=== PATIENT | male | born 1965 | race Caucasian/White ===

== ENCOUNTER 2016-12-15 06:49 | Day surgery (SDC) | payer BC ==
--- NOTE | ~2016-12-15 | EGD ---
EGD REPORT [facility] [address] [id number] NAME: HILDA BARRIOS : [birth year] STATUS : REG [facility]#: [id number] AGE: 51 ADM/REG DATE : 12/15/16 MR#: [id number] REPORT SERV DATE: 12/15/16 DICTATED BY: DATE: REPORT STATUS : Draft TRANSCRIBED BY: 3 Four 5 [facility] DATE: 12/15/16 End[facility] Center Patient Name: Hilda Barrios Date of : 1965 Attending MD: CORI LAU MD Procedure Date No Time: 12/15/2016 Procedure: Colonoscopy Indications: Screening in patient at increased risk: Colorectal cancer in brother before age 60, Screening in patient at increased risk: Colorectal cancer in sister before age 60, High risk colon cancer surveillance: Personal history of colonic polyps Referring MD: Brad Daily Medicines: Monitored Anesthesia Care Complications: No immediate complications. Procedure: Pre-Anesthesia Assessment: - ASA Grade Assessment: II - A patient with mild systemic disease. After I obtained informed consent, the scope was passed under direct vision. Throughout the procedure, the patient's blood pressure, pulse, and oxygen saturations were monitored continuously. The CF [id number] was introduced through the anus and advanced to the cecum, identified by appendiceal orifice and ileocecal valve. The colonoscopy was performed without difficulty. The patient tolerated the procedure well. The quality of the bowel preparation was adequate. Findings: The digital rectal exam was normal. Pertinent negatives include no palpable rectal lesions. Three sessile polyps were found in the ascending colon. The polyps were 3 to 4 mm in size. These polyps were removed with a cold biopsy forceps. Resection and retrieval were complete. Two sessile polyps were found in the rectum. The polyps were 2 to 3 mm in size. These polyps were removed with a cold biopsy forceps. Resection and retrieval were complete. Multiple diverticula were found in the sigmoid colon. Hemorrhoids were found during retroflexion and were mild. Impression: - Three 3 to 4 mm polyps in the ascending colon. Resected and retrieved. - Two 2 to 3 mm polyps in the rectum. Resected and retrieved. - Diverticulosis in the sigmoid colon. EGD REPORT [address] [address] NAME: HILDA BARRIOS : [birth year] STATUS : REG [facility] [place] PAT#: [id number] AGE: 51 ADM/REG DATE : 12/15/16 MR#: [id number] REPORT SERV DATE: 12/15/16 DICTATED BY: DATE: REPORT STATUS : Draft TRANSCRIBED BY: KXEN DATE: 12/15/16 - Hemorrhoids. Recommendation: - Patient has a contact number available for emergencies. The signs and symptoms of potential delayed complications were discussed with the patient. Return to normal activities tomorrow. Written discharge instructions were provided to the patient. - Regular diet. - Continue present medications. - Repeat colonoscopy in 3 years for surveillance. - Return to GI clinic PRN. Procedure Code(s): --- Professional --- 53742, Colonoscopy, flexible, proximal to splenic flexure; with biopsy, single or multiple Diagnosis Code(s): --- Professional --- K62.1, Rectal polyp D12.2, Benign neoplasm of ascending colon K64.9, Unspecified hemorrhoids K57.30, Diverticulosis of large intestine without perforation or abscess without bleeding Z12.11, Encounter for screening for malignant neoplasm of colon Z80.0, Family history of malignant neoplasm of digestive organs Z86.010, Personal history of colonic polyps CPT copyright 2013 [employer]. All rights reserved. The codes documented in this report are preliminary and upon head wrestling coach review may be revised to meet current compliance requirements. CORI LAU MD 12/15/2016 9:55 AM This report has been signed electronically. Number of Addenda: 0 Note Initiated On: 12/15/2016 9:28 AM Scope Withdrawal Time 0 hours 9 minutes 33 seconds [id number] [id number]
[~2016-12-15 06:49] MED LIST: ALTA2.5 PO; ASAB PO; DENIES HOME MEDS; EFFIENT10 PO; LOFIB160 PO; MAXALT10 MG PO; NITROSTAT0.4 MG SL; PLAVIX PO; TOPXL100 PO; VERELAN180 MG PO; ZOCOR40 PO
== END 2016-12-15 23:59 | disposition home or self-care (01) ==
LOC: DMU 06:49
PROVIDERS: Internal Medicine Gastroenterology
PROC: 0DBP8ZX Excision of Rectum, Via Natural or Artificial Opening Endoscopic, Diagnostic (ICD-10-PCS; 2016-12-15)
PROC: 0DBK8ZX Excision of Ascending Colon, Via Natural or Artificial Opening Endoscopic, Diagnostic (ICD-10-PCS; principal; 2016-12-15 08:30)
DX: Z12.11 Encounter for screening for malignant neoplasm of colon (principal); D12.2 Benign neoplasm of ascending colon; K62.1 Rectal polyp; K64.9 Unspecified hemorrhoids; K57.30 Diverticulosis of large intestine without perforation or abscess without bleeding; I25.10 Atherosclerotic heart disease of native coronary artery without angina pectoris; I11.9 Hypertensive heart disease without heart failure; G43.909 Migraine, unspecified, not intractable, without status migrainosus; E78.00 Pure hypercholesterolemia, unspecified; Z88.1 Allergy status to other antibiotic agents; Z80.0 Family history of malignant neoplasm of digestive organs; Z86.010 Personal history of colon polyps; Z79.82 Long term (current) use of aspirin; Z79.899 Other long term (current) drug therapy; Z95.1 Presence of aortocoronary bypass graft; Z98.890 Other specified postprocedural states
CPT/HCPCS: 88305